=== PATIENT | female | born 1960 | race Two or more races ===

== ENCOUNTER 2019-05-14 16:31 | Emergency (ER) | payer MEDICAID ==
[~2019-05-14] VITALS: Ht 157.5 cm; Wt 81.6 kg
[2019-05-14 16:41] VITALS: BP 134/69
== END 2019-05-14 18:40 | disposition left against medical advice (07) ==
LOC: ER 16:31
DX: Z76.0 Encounter for issue of repeat prescription (principal); Z53.21 Procedure and treatment not carried out due to patient leaving prior to being seen by health care provider

== ENCOUNTER 2019-06-17 12:06 | Inpatient (IN) | payer MEDICAID ==
[~2019-06-17] VITALS: Ht 157.5 cm; Wt 82.2 kg
[2019-06-17 12:53] LABS: Basophils # (auto) 0.1 uL; Basophils % (auto) 0.9 % (0.0-2.0); Eosinophils # (auto) 0.1 uL; Eosinophils % (auto) 0.8 % (0.0-7.0); Hematocrit 42.6 % (36.0-46.0); Hemoglobin 14.6 g/dL (12.2-16.2); Lymphocytes # (auto) 1.2 uL; Lymphocytes % (auto) 16.8 % (10.0-50.0); Mean Corpuscular Hemoglobin 29.9 pg (28.0-32.0); Mean Corpuscular Hgb Conc. 34.2 g/dL (32.0-36.0); Mean Corpuscular Volume 87.4 fL (80.0-100.0); Monocytes # (auto) 0.4 uL; Monocytes % (auto) 4.8 % (0.0-12.0); Neutrophils # (auto) 5.6 uL; Neutrophils % (auto) 76.7 % (37.0-80.0); Nucleated Red Blood Cells % 0.1 %; Platelet Count (auto) 308 10^3/uL (140-450); Red Blood Cells 4.88 10^6/uL (4.0-5.20); Red Cell Distribution Width 13.4 % (11.8-14.3); White Blood Cell 7.3 10^3/uL (4.4-10.8)
[2019-06-17 13:13] LABS: Albumin 3.3 g/dL (3.4-5.0); Anion Gap 9 (5-15); Calcium 8.8 mg/dL (8.5-10.1); Carbon Dioxide 25 mmol/L (21-32); Chloride 97 mmol/L (98-107); Potassium 3.9 mmol/L (3.5-5.1); Sodium 131 mmol/L (136-145)
[2019-06-17 13:17] LABS: Alanine Aminotransferase 18 U/L (13-56); Alkaline Phosphatase 97 U/L (45-117); Aspartate Aminotransferase 7 U/L (15-37); Bilirubin, Total 0.8 mg/dL (0.2-1.0); GFR African American 80 mL/min; GFR Non-African American 66 mL/min; Total Protein 7.9 g/dL (6.4-8.2)
[2019-06-17 13:42] LABS: Glucose 520 mg/dL (74-106)
[2019-06-17] MEDS ORDERED: InsuLIN REG 1unit/0.01ml Soln (100units/ml) IV ONE (14:45)
[2019-06-17] MEDS: SODIUM CHLORIDE 0.9% 1,000 ML IV SCH (15:14)
[2019-06-17] MEDS ORDERED: MORPHINE SULF INJ 2 MG/ML SYRINGE 1ML IV PRN (15:15)
[2019-06-17] MEDS ORDERED: DEXTROSE (50%) 50ML SYRG IV PRN (15:15)
[2019-06-17] MEDS ORDERED: LISINOPRIL 5 MG TAB PO ONE (15:15)
[2019-06-17] MEDS ORDERED: traMADol HCL 50 MG TAB PO PRN (15:15)
[2019-06-17] MEDS ORDERED: ACETAMINOPHEN 500 MG TAB PO PRN (15:15)
[2019-06-17] MEDS ORDERED: PROMETHAZINE HCL 25 MG/ML 1ML IV PRN (15:15)
[2019-06-17] MEDS ORDERED: LACTULOSE 20Gm/30ML SOLN PO PRN (15:15)
[2019-06-17] MEDS ORDERED: NITROGLYCERIN 0.4 MG SL TAB SL PRN (15:15)
[2019-06-17] MEDS ORDERED: TEMAZEPAM 15 MG CAP PO PRN (15:15)
[2019-06-17 15:55] LABS: Urine Bacteria NONE SEEN /hpf (None Seen); Urine Blood Negative /uL (Negative); Urine Specific Gravity 1.033 (1.001-1.035); Urine WBC 2 /hpf (0 - 5)
[2019-06-17 16:08] LABS: Amphetamine Screen, Urine NEGATIVE (NEGATIVE); Barbiturate Scree,Urine NEGATIVE (NEGATIVE); Benzodiazephine Screen, Urine NEGATIVE (NEGATIVE); Cannabinoid Screen, Urine NEGATIVE (NEGATIVE); Cocaine Screen, Urine NEGATIVE (NEGATIVE); Opiate Scree,Urine NEGATIVE (NEGATIVE); Phencyclidine Screen, Urine NEGATIVE (NEGATIVE)
[2019-06-17] MEDS: ACCU-CHEK COMFORT CURVE STRIP VI SCH ×2 (16:08→20:00)
[2019-06-17] MEDS: InsuLIN REG 1unit/0.01ml Soln (100units/ml) SC SCH ×2 (16:28→20:00)
[2019-06-17 17:00] VITALS: BP 159/87
--- NOTE | 2019-06-17 17:00 | NUR ---
Telemetry admit from [facility] admitted to Telemetry unit after SBAR received. Patient oriented to NIKOLE ISAACSRN primary RN, tele unit, room 209, bed A, and unit policies regarding patient care and visiting hours. Patient now on continuous telemetry monitoring, tele box #25 and telemetry reading on arrival to unit is SR 82. Fall precautions in place, bed in lowest position ,breaks locked, side rails up x2, call light with in reach, bed alarm on. Patient encouraged to call if they need something. All questions and concerns addressed, patient verbalized understanding. Will continue to monitor Q1hr and PRN.
[2019-06-17 17:16] VITALS: BP 159/87
[2019-06-17 17:58] LABS: BUN/Creatinine Ratio 15.1; Blood Urea Nitrogen 14 mg/dL (7-18)
--- NOTE | 2019-06-17 18:00 | NUR ---
Daughter left with patients medication unable to obtain home medication from patient. Patients daughter to bring in medication tomorrow.
--- NOTE | 2019-06-17 19:15 | NUR ---
Patient is awake, alert and resting in bed. Respiration are even and unlabored. No S/S of distress noted. Care endorsed to [facility] KARRI Welch.
--- NOTE | 2019-06-17 20:00 | NUR ---
Opening Shift Note Assumed care of patient, awake and alert. No S/S of distress/SOB or pain. Instructed on POC and to call for assist PRN, will continue to monitor for changes Q1hr and PRN. Bed in low position and light in reach. Patient is able to transfer to bedside commode with moderate assist.
[2019-06-17 22:00] VITALS: BP 160/92
[2019-06-17] MEDS ORDERED: ATORVASTATIN 20 MG TAB PO SCH (22:00)
[2019-06-17] MEDS: INSULIN LANTUS (GLARGINE) 1 /0.01ml (100units/ml) SC SCH (22:00)
[2019-06-17] MEDS: CARVEDILOL 12.5 MG TAB PO SCH (22:00)
[2019-06-18] MEDS: SODIUM CHLORIDE 0.9% 1,000 ML IV SCH ×2 (03:17→17:12)
[2019-06-18] MEDS: ACCU-CHEK COMFORT CURVE STRIP VI SCH ×6 (04:00→20:10)
[2019-06-18] MEDS: InsuLIN REG 1unit/0.01ml Soln (100units/ml) SC SCH ×6 (04:00→20:10)
[2019-06-18 05:00] VITALS: BP 147/82
[2019-06-18 06:22] LABS: Cholesterol 209 mg/dL (< 200); HDL Cholesterol 54 mg/dL (40-59); LDL Cholesterol 124 mg/dL (< 100); Triglycerides 143 mg/dL (< 150)
[2019-06-18] MEDS: INSULIN LANTUS (GLARGINE) 1 /0.01ml (100units/ml) SC SCH ×2 (07:00→22:25)
--- NOTE | 2019-06-18 07:15 | NUR ---
Opening Shift Note Received relief and Assumed care of patient, awake and alert. No S/S of distress/SOB or pain. Instructed on POC and to call for assist PRN, will continue to monitor for changes Q1hr and PRN. Bed in low position and call light within reach patient reminded instructed to call for assistance. Patient is able to ambulate to rest room with moderate assist.
[2019-06-18 09:00] VITALS: BP 152/80
[2019-06-18] MEDS ORDERED: LISINOPRIL 5 MG TAB PO SCH (10:00)
[2019-06-18] MEDS ORDERED: ATORVASTATIN 20 MG TAB PO ONE (10:00)
[2019-06-18] MEDS ORDERED: LISINOPRIL 20 MG TAB PO ONE (10:00)
[2019-06-18] MEDS ORDERED: amLODIPine BESYLATE 5 MG TAB PO ONE (10:00)
[2019-06-18] MEDS ORDERED: DULoxetine HCL 30 MG CAP PO ONE (10:00)
[2019-06-18] MEDS ORDERED: ASPirin 81 mg TAB PO SCH (10:00)
[2019-06-18] MEDS ORDERED: ASPirin 81 mg TAB PO ONE (10:00)
[2019-06-18] MEDS: ENOXAPARIN SOD 40 MG/0.4 ML SYRINGE SC SCH (10:57)
[2019-06-18] MEDS: PANTOPRAZOLE 40 MG TAB PO SCH (10:58)
[2019-06-18] MEDS: CLOPIDOGREL BISULFATE 75 MG TAB PO SCH (10:58)
[2019-06-18] MEDS: CARVEDILOL 12.5 MG TAB PO SCH ×2 (11:00→22:23)
[2019-06-18 13:00] VITALS: BP 154/76
[2019-06-18] MEDS ORDERED: cefTRIAXone 1GM/50ML D5W 50 ML IV ONE (13:30)
--- NOTE | 2019-06-18 13:30 | NUR ---
FAMILY AT BEDSIDE VISITING
--- NOTE | 2019-06-18 15:00 | NUR ---
AMBULATES TO REST ROOM OR GETS OOB AND SITS UP IN CHAIR,PATIENT INSTRUCTED TO CALL FOR ASSISTANCE DUE
[2019-06-18 17:00] VITALS: BP 138/83
--- NOTE | 2019-06-18 20:00 | NUR ---
Opening Shift Note Assumed care of patient, awake and alert. No S/S of distress/SOB or pain. Instructed on POC and to call for assist PRN, will continue to monitor for changes Q1hr and PRN. Patient's accucheck performed every four hours with s/s coverage. bed in low position and call light in reach.
[2019-06-18 21:41] VITALS: BP 149/76
[2019-06-19] MEDS: InsuLIN REG 1unit/0.01ml Soln (100units/ml) SC SCH ×7 (04:00→23:48)
[2019-06-19] MEDS: ACCU-CHEK COMFORT CURVE STRIP VI SCH ×7 (04:00→23:47)
[2019-06-19 04:36] VITALS: BP 129/68
[2019-06-19] MEDS: SODIUM CHLORIDE 0.9% 1,000 ML IV SCH ×2 (05:00→17:14)
[2019-06-19] MEDS: INSULIN LANTUS (GLARGINE) 1 /0.01ml (100units/ml) SC SCH ×2 (06:05→21:08)
[2019-06-19] MEDS: cefTRIAXone 1GM/50ML D5W 50 ML IV SCH (08:48)
[2019-06-19 09:00] VITALS: BP 185/84
[2019-06-19] MEDS: PANTOPRAZOLE 40 MG TAB PO SCH (10:46)
[2019-06-19] MEDS: ENOXAPARIN SOD 40 MG/0.4 ML SYRINGE SC SCH (10:46)
[2019-06-19] MEDS: CLOPIDOGREL BISULFATE 75 MG TAB PO SCH (10:46)
[2019-06-19] MEDS: CARVEDILOL 12.5 MG TAB PO SCH ×2 (10:47→21:14)
[2019-06-19 13:00] VITALS: BP 161/80
[2019-06-19] MEDS: LABETALOL HCL 5 MG/ML ML 20ML VIAL IV PRN ×2 (13:53→23:03)
[2019-06-19 17:00] VITALS: BP 156/83
--- NOTE | 2019-06-19 20:00 | NUR ---
Opening Shift Note Assumed care of patient, awake and alert. No S/S of distress/SOB or pain. Instructed on POC and to call for assist PRN, will continue to monitor for changes Q1hr and PRN.
[2019-06-19 21:41] VITALS: BP 162/84
[2019-06-19 21:42] VITALS: BP 159/91
[2019-06-20] MEDS: ACCU-CHEK COMFORT CURVE STRIP VI SCH ×5 (04:06→20:15)
[2019-06-20] MEDS: InsuLIN REG 1unit/0.01ml Soln (100units/ml) SC SCH ×6 (04:06→23:59)
[2019-06-20 04:34] VITALS: BP 146/72
[2019-06-20] MEDS: SODIUM CHLORIDE 0.9% 1,000 ML IV SCH ×2 (05:44→18:07)
[2019-06-20] MEDS: INSULIN LANTUS (GLARGINE) 1 /0.01ml (100units/ml) SC SCH ×2 (06:22→21:39)
--- NOTE | 2019-06-20 07:34 | NUR ---
Opening Shift Note Assumed care of patient, awake and alert. No S/S of distress/SOB. Pt denies having any pain at this time. Bed in lowest and locked position with side rails upx2 and call light in reach. Instructed on POC and to call for assist PRN, will continue to monitor for changes Q1hr and PRN.
[2019-06-20 10:00] VITALS: BP 176/78
[2019-06-20] MEDS: cefTRIAXone 1GM/50ML D5W 50 ML IV SCH (10:04)
[2019-06-20] MEDS: ENOXAPARIN SOD 40 MG/0.4 ML SYRINGE SC SCH (10:05)
[2019-06-20] MEDS: PANTOPRAZOLE 40 MG TAB PO SCH (10:05)
[2019-06-20] MEDS: CARVEDILOL 12.5 MG TAB PO SCH ×2 (10:05→21:39)
[2019-06-20] MEDS: CLOPIDOGREL BISULFATE 75 MG TAB PO SCH (10:05)
[2019-06-20] MEDS ORDERED: amLODIPine BESYLATE 5 MG TAB PO ONE (10:15)
[2019-06-20] MEDS ORDERED: LISINOPRIL 20 MG TAB PO ONE (10:15)
[2019-06-20 13:04] VITALS: BP 157/76
--- NOTE | 2019-06-20 13:10 | NUR ---
PATIENT'S DAUGHTER, TIA, BROUGHT IN PATIENT'S HOME MEDICATIONS. MEDICATIONS ENTERED INTO HOME RECONCILE MEDICATIONS. PATIENTS DAUGHTER WAS EDUCATED THAT THE MEDICATIONS CAN NOT STAY IN THE PATIENTS ROOM AND THAT SHE CAN EITHER TAKE THE MEDICATIONS HOME, OR THE MEDICATIONS CAN BE TAKEN TO THE HOSPITAL PHARMACY. PATIENT'S DAUGHTER VERBALIZED THAT SHE WILL TAKE THE MEDICATIONS HOME.
[2019-06-20 16:56] VITALS: BP 162/86
[2019-06-20] MEDS ORDERED: IMI25T PO (17:34)
[2019-06-20] MEDS ORDERED: DULO60CA PO (17:34)
[2019-06-20] MEDS ORDERED: ATO40T PO (17:34)
[2019-06-20] MEDS ORDERED: CLOP75TA41 PO (17:34)
[2019-06-20] MEDS ORDERED: AMLO5TAB15 PO (17:34)
[2019-06-20] MEDS ORDERED: CETI10TA80 PO (17:34)
[2019-06-20] MEDS ORDERED: LISI-646 PO (17:34)
[2019-06-20] MEDS ORDERED: ASPI-404 PO (17:34)
[2019-06-20] MEDS ORDERED: CAR125T OR (17:34)
[2019-06-20] MEDS ORDERED: METF-929 PO (17:34)
[2019-06-20] MEDS: LABETALOL HCL 5 MG/ML ML 20ML VIAL IV PRN (18:03)
--- NOTE | 2019-06-20 19:00 | NUR ---
OPENING NOTE Received report from day shift RN. Patient is A&O X's 4 with no s/s of distress and patient reports no pain. Patient has slurred speech. This is patient's baseline. Educated patient on POC and to use call light when in need of assistance and when needing to get up from bed. Patient verbalized understanding. Commode is at bedside with a clear path to it. Bed is in lowest/locked position with side rails up X's 2 and call light is within reach of patient. Will continue care.
[2019-06-20 22:00] VITALS: BP 151/78
[2019-06-20] MEDS ORDERED: ATORVASTATIN 20 MG TAB PO SCH (22:00)
[2019-06-21] MEDS: InsuLIN REG 1unit/0.01ml Soln (100units/ml) SC SCH ×4 (04:19→16:39)
[2019-06-21] MEDS: ACCU-CHEK COMFORT CURVE STRIP VI SCH ×5 (04:19→16:34)
[2019-06-21 05:20] LABS: BUN/Creatinine Ratio 16.7; Calcium 9.6 mg/dL (8.5-10.1); Potassium 3.3 mmol/L (3.5-5.1)
[2019-06-21 05:46] VITALS: BP 150/79
[2019-06-21] MEDS: SODIUM CHLORIDE 0.9% 1,000 ML IV SCH (06:17)
[2019-06-21] MEDS: INSULIN LANTUS (GLARGINE) 1 /0.01ml (100units/ml) SC SCH (06:17)
--- NOTE | 2019-06-21 08:45 | NUR ---
NEUROLOGY DR. RICH MADE AWARE OF NEUROLOGY CONSULT AND DISCHARGE PLAN. PER DR. RICH, CONTINUE WITH DISCHARGE AND ENCOURAGE PATIENT TEACHING. PT SHOULD FOLLOW UP AN OUTPATIENT.
[2019-06-21 09:00] VITALS: BP 140/65
[2019-06-21] MEDS: ENOXAPARIN SOD 40 MG/0.4 ML SYRINGE SC SCH (09:52)
[2019-06-21] MEDS: cefTRIAXone 1GM/50ML D5W 50 ML IV SCH (09:52)
[2019-06-21] MEDS: PANTOPRAZOLE 40 MG TAB PO SCH (09:54)
[2019-06-21] MEDS: CLOPIDOGREL BISULFATE 75 MG TAB PO SCH (09:54)
[2019-06-21] MEDS: CARVEDILOL 12.5 MG TAB PO SCH ×2 (09:54→10:54)
[2019-06-21] MEDS ORDERED: LISINOPRIL 20 MG TAB PO SCH (10:00)
[2019-06-21] MEDS ORDERED: amLODIPine BESYLATE 5 MG TAB PO SCH (10:00)
[2019-06-21] MEDS ORDERED: POTASSIUM CHL 20 Meq TABLET PO ONE (10:15)
[2019-06-21 13:00] VITALS: BP 135/88
[2019-06-21 15:05] VITALS: BP 135/88
--- NOTE | 2019-06-21 15:43 | NUR ---
Assessment Pt is a 59 yr old alert and oriented female. Prior to admit, pt lives with her Daughter, Briana, and her 3 kids. Pt's daughter, Briana, is her emergency contact at [phone]. Pt daughter assists with cooking and cleaning. Pt was independent with ADL's previously and states that her right arm isn't working as good anymore. Pt has a walker and a cane at home. Pt admitted due to "mini-stroke." Pt receives SS and has no interest in AD. Pt stated that she feels safe going back home from hospital. Pt's daughter will transport her home. No current concerns or needs. Addendum: 06/21/19 at 1550 by ELLIOT RAMIREZ Amended: Links added.
--- NOTE | 2019-06-21 17:10 | NUR ---
Discharge instructions given as ordered. Encourage to follow up with PMD as instructed. All questions and concerns addressed. Patient verbalized understanding. Medication reconciliation form completed and copy given to patient. IV removed with catheter intact, pressure dressing applied. Medications delivered at bedside from [facility]. Telemetry unit returned to ICU. Patient taken to vehicle via wheelchair with all personal belongings, accompanied by staff and family member. No distress noted at time of departure.
== END 2019-06-21 17:10 | disposition home or self-care (01) | DRG 45 ==
LOC: ER 12:10 → TELE 12:11 → TELE-CENTR 16:59
PROVIDERS: ADMIT Internal Medicine; ATTEND Internal Medicine
DX: I63.9 Cerebral infarction, unspecified (principal); E11.65 Type 2 diabetes mellitus with hyperglycemia; I16.0 Hypertensive urgency; I69.351 Hemiplegia and hemiparesis following cerebral infarction affecting right dominant side; E87.1 Hypo-osmolality and hyponatremia; R47.81 Slurred speech; I10 Essential (primary) hypertension; E78.5 Hyperlipidemia, unspecified; E66.9 Obesity, unspecified; E44.1 Mild protein-calorie malnutrition; R32 Unspecified urinary incontinence; Z68.33 Body mass index [BMI] 33.0-33.9, adult; Z82.49 Family history of ischemic heart disease and other diseases of the circulatory system; Z83.3 Family history of diabetes mellitus; Z91.14 Patient's other noncompliance with medication regimen
CPT/HCPCS: 36415; 70450; 71045; 80048; 80053; 80061; 80307; 81001; 82550; 82962; 83036; 83735; 84443; 84484; 85025; 85652; 87086; 93005; 93306; 93886; 96374; G0378; J0696; J1815

== ENCOUNTER → 2020-11-16 | Outpatient (CLI) | payer MEDICAID ==
[~2020-11-16] MED LIST: AMLO-489 PO; ASPI-543 PO; ATO40T PO; CAR125T OR; CETI10TA80 PO; CLOP75TA70 PO; DULO60CA PO; IMI25T PO; LISI-646 PO; METF-929 PO
[2020-11-16 12:20] LABS: Potassium 4.2 mmol/L (3.5-5.1)
[2020-11-16 12:29] LABS: Albumin 3.8 g/dL (3.4-5.0); BUN/Creatinine Ratio 25.4; Bilirubin, Total 0.6 mg/dL (0.2-1.0); Calcium 9.6 mg/dL (8.5-10.1)
== END | disposition home or self-care (01) ==
LOC: LAB 10:30
PROVIDERS: ATTEND Internal Medicine
DX: E11.9 Type 2 diabetes mellitus without complications (principal)
CPT/HCPCS: 36415; 80053; 83036; 83540

== ENCOUNTER → 2021-01-25 | Outpatient (CLI) | payer MEDICAID ==
[~2021-01-25] MED LIST changes: -LISI-646 PO; +LISI20TA28 PO
[2021-01-25 10:36] LABS: Cholesterol 144 mg/dL (< 200); HDL Cholesterol 74 mg/dL (40-59); LDL Cholesterol 54 mg/dL (< 100); Triglycerides 80 mg/dL (< 150)
== END | disposition home or self-care (01) ==
LOC: LAB 09:01
PROVIDERS: ATTEND Internal Medicine
DX: E11.9 Type 2 diabetes mellitus without complications (principal); I10 Essential (primary) hypertension
CPT/HCPCS: 36415; 80061; 83036

== ENCOUNTER → 2021-05-10 | Outpatient (CLI) | payer MEDICAID ==
[~2021-05-10] MED LIST changes: +CETI10TA2 PO; -CETI10TA80 PO; -IMI25T PO; +IMIP25TA2 PO
[2021-05-10 10:29] LABS: Basophils # (auto) 0.1 10 ^3/uL (0-0.2); Basophils % (auto) 0.9 % (0.0-2.0); Eosinophils # (auto) 0.1 10 ^3/uL (0-0.8); Eosinophils % (auto) 1.9 % (0.0-7.0); Hematocrit 43.3 % (36.0-46.0); Hemoglobin 14.4 g/dL (12.2-16.2); Lymphocytes # (auto) 1.7 10 ^3/uL (0.4-5.4); Lymphocytes % (auto) 28.7 % (10.0-50.0); Mean Corpuscular Hemoglobin 28.9 pg (28.0-32.0); Mean Corpuscular Hgb Conc. 33.2 g/dL (32.0-36.0); Monocytes # (auto) 0.4 10 ^3/uL (0-1.3); Monocytes % (auto) 5.9 % (0.0-12.0); Neutrophils # (auto) 3.8 10 ^3/uL (1.6-8.6); Neutrophils % (auto) 62.6 % (37.0-80.0); Red Blood Cells 4.98 10^6/uL (4.0-5.20); Red Cell Distribution Width 13.5 % (11.8-14.3); White Blood Cell 6.1 10^3/uL (4.4-10.8)
[2021-05-10 13:36] LABS: Potassium 3.9 mmol/L (3.5-5.1)
[2021-05-10 14:00] LABS: Albumin 3.6 g/dL (3.4-5.0); BUN/Creatinine Ratio 18.7; Calcium 9.3 mg/dL (8.5-10.1)
[2021-05-10 14:03] LABS: Bilirubin, Total 0.6 mg/dL (0.2-1.0); Total Protein 8.3 g/dL (6.4-8.2)
== END | disposition home or self-care (01) ==
LOC: LAB 09:59
PROVIDERS: ATTEND Internal Medicine
DX: Z00.00 Encounter for general adult medical examination without abnormal findings (principal); E11.9 Type 2 diabetes mellitus without complications
CPT/HCPCS: 36415; 80053; 80061; 85025